=== PATIENT | female | born 1985 | race American Indian/Alaskan Native ===

== ENCOUNTER 2021-08-13 09:21 | Inpatient (IN) | payer MEDICAID ==
[2021-08-13] MEDS ORDERED: PROMETHAZINE 25 MG RECT SUPP PR PRN ×2 (09:38→13:52)
[2021-08-13] MEDS ORDERED: HYDROmorphone 1 MG/1 ML INJ IV PRN (09:38)
[2021-08-13] MEDS ORDERED: NALOXONE 0.4 MG/1 ML INJ IV PRN ×2 (09:38→13:52)
[2021-08-13] MEDS ORDERED: ONDANSETRON 4 MG/2 ML INJ IV PRN ×2 (09:38→13:52)
[2021-08-13] MEDS ORDERED: PROMETHAZINE 25 MG TAB PO PRN (09:38)
[2021-08-13] MEDS ORDERED: diphenhydrAMINE 50 MG/ML VIAL IV PRN (09:38)
[2021-08-13] MEDS ORDERED: NalbUPHINE 10 MG/1 ML INJ IV PRN (09:38)
[2021-08-13] MEDS ORDERED: ceFAZolin/Water 2 GM/20 ML 2 GM/20 ML SYRINGE IV NR (10:00)
--- NOTE | 2021-08-13 10:07 | Anesthesia Consultation ---
Anesthesia Consult and Med Hx Date of service: 08/13/21 - Airway Anesthetic Teeth Evaluation: Good ROM Head & Neck: Adequate Mental/Hyoid Distance: Adequate Mallampati Class: Class III Intubation Access Assessment: Possibly Difficult - Pulmonary Exam CTA: Yes - Cardiac Exam Cardiac Exam: RRR - Pre-Operative Health Status ASA Pre-Surgery Classification: ASA2 Proposed Anesthetic Plan: Spinal Nerve Block: TAP - Pulmonary Hx Smoking: No Hx Asthma: No COPD: No Hx Pneumonia: No Hx Sleep Apnea: No - Cardiovascular System Hx Hypertension: No Hx Heart Attack/AMI: No Hx Angina: No - Central Nervous System Hx Seizures: No Hx Psychiatric Problems: No - Gastrointestinal Hx Gastroesophageal Reflux Disease: No - Endocrine Hx Renal Disease: No Hx End Stage Renal Disease: No Hx Liver Disease: No Hx Insulin Dependent Diabetes: No Hx Non-Insulin Dependent Diabetes: No Hx Hypothyroidism: No Hx Hyperthyroidism: No - Hematic Hx Anemia: No Hx Sickle Cell Disease: No - Other Systems Hx Alcohol Use: No Hx Obesity: Yes - Additional Comments Anesthesia Medical History Comments: previous c/s x1
--- NOTE | 2021-08-13 10:07 | Anesthesia Day of Surgery ---
Anesthesia Day of Surgery - Day of Surgery Patient Examined: Yes Patient H&P Reviewed: Yes Patient is NPO: Yes Beta Blockers: No Cardiac Clearance: No Pulmonary Clearance: No Jagdish's Test: N/A
[2021-08-13] MEDS ORDERED: OXYTOCIN DRIP 30 UNITS/500 ML BAG IV SCH ×2 (10:30→14:00)
[2021-08-13] MEDS ORDERED: METOCLOPRAMIDE 10 MG/2 ML INJ IV ONE (10:30)
[2021-08-13] MEDS ORDERED: BICITRA ORAL LIQD 30ML PO ONE (10:30)
[2021-08-13] MEDS ORDERED: FAMOTIDINE 20 MG/2 ML INJ IV ONE (10:30)
[2021-08-13 10:34] LABS: Basophils % (Auto) 0.2 % (0.0-1.8); Eosinophils # (Auto) 0.1 K/mm3 (0.0-0.4); Eosinophils % (Auto) 0.8 % (0.0-4.3); Hematocrit 31.2 % (30.3-42.9); Hemoglobin 10.2 gm/dl (10.1-14.3); Lymphocytes # (Auto) 1.5 K/mm3 (1.2-5.4); Lymphocytes % (Auto) 20.6 % (13.4-35.0); Mean Corpuscular HGB Conc 33 % (30-34); Mean Corpuscular Volume 83 fl (79-97); Monocytes # (Auto) 0.6 K/mm3 (0.0-0.8); Monocytes % (Auto) 7.8 % (0.0-7.3); Platelet Count 243 K/mm3 (140-440); Red Blood Count 3.75 M/mm3 (3.65-5.03); Red Cell Distribution Width 16.7 % (13.2-15.2)
[2021-08-13] MEDS: LACTATED RINGERS 1,000 ML IV SCH ×2 (10:37→18:22)
--- NOTE | 2021-08-13 11:26 | History and Physical Report ---
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 Patient affirms that she desires bilateral tubal ligation and no longer wishes to conceive. Denies labor complaints or PIH symptoms. Active fetus. 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 History: herpes Family/Genetic History: cancer (breast) Social history: no significant social history - Obstetrical History Expected Date of Delivery: 08/20/21 Actual Gestation: 39 Week(s) 0 Day(s) : 6 Para: 5 Hx # Term Pregnancies: 5 Number of Living Children: 5 Medications and Allergies Allergies Allergy/AdvReac Type Severity Reaction Status Date / Time No Known Allergies Allergy Unverified 01/04/14 01:03 Home Medications Medication Instructions Recorded Confirmed Last Taken Type Valacyclovir HCl [Valtrex] 1,000 mg PO DAILY 01/04/14 03/02/16 01/03/14 History Acetaminophen [Acetaminophen ER 650 mg PO Q8HR PRN #120 tablet.er 08/18/15 03/02/16 Unknown Rx TAB] Pnv,Calcium 72/Iron/Folic Acid 1 each PO DAILY #90 tablet 08/18/15 03/02/16 Unknown Rx [Pnv Plus Multivit Tab] Ferrous Sulfate [Feosol 325 MG tab] 325 mg PO BID #60 tablet 03/02/16 Unknown Rx HYDROcodone/APAP 5-325 [[place] 1 each PO Q6HR PRN #30 tablet 03/02/16 Unknown Rx 5/325] Ibuprofen [Motrin] 800 mg PO Q8HR PRN #30 tablet 03/02/16 Unknown Rx Vit Calc,Iron,Folic 1 each PO DAILY #30 tablet 03/02/16 Unknown Rx [ Vitamins] Active Meds: Active Medications Diphenhydramine HCl (Diphenhydramine 50 Mg/Ml Vial) 12.5 mg IV Q2H PRN PRN Reason: Itching Hydromorphone HCl (Hydromorphone 1 Mg/1 Ml Inj) 0.5 mg IV Q4H PRN PRN Reason: breakthrough pain > 7/10 Lactated Ringer's (Lactated Ringers) 1,000 mls @ 2,250 mls/hr IV PREOP ISSA Stop: 08/14/21 10:42 Last Admin: 08/13/21 10:37 Dose: 2,250 mls/hr Documented by: Oxytocin/Sodium Chloride (Pitocin/Ns 30 Unit/500ml) 30 units in 500 mls @ 0 mls/hr IV TITR ISSA; Protocol Cefazolin Sodium (Ancef/Sterile Water 2 Gm/20 Ml) 2 gm in 20 mls @ 80 mls/hr IV PREOP NR; Protocol Stop: 08/13/21 23:59 Nalbuphine HCl (Nalbuphine 10 Mg/1 Ml Inj) 2.5 mg IV Q2H PRN PRN Reason: Itching Naloxone HCl (Naloxone 0.4 Mg/1 Ml Inj) 0.2 mg IV Q2MIN PRN PRN Reason: Res Rate </= 8 or 02 SAT < 92% Ondansetron HCl (Ondansetron 4 Mg/2 Ml Inj) 4 mg IV Q8H PRN PRN Reason: Nausea And Vomiting Promethazine HCl (Promethazine 25 Mg Tab) 25 mg PO Q6H PRN PRN Reason: Nausea And Vomiting Promethazine HCl (Promethazine 25 Mg Rect Supp) 25 mg W[place] Q6H PRN PRN Reason: Nausea And Vomiting Review of Systems All systems: negative (expect HPI) - Vital Signs Vital signs: Vital Signs Pulse BP Pulse Ox 81 115/67 100 08/13/21 10:05 08/13/21 10:05 08/13/21 10:05 Temp Pulse Resp BP Pulse Ox 98.5 F 80 20 115/67 100 08/13/21 10:24 08/13/21 10:55 08/13/21 10:24 08/13/21 10:05 08/13/21 10:55 - Physical Exam Abdomen: Positive: normal appearance, soft Uterus: Positive: enlarged - Obstetrical FHR: category 1, category 2 Uterine Contraction Monitor Mode: External Results Result Diagrams: 08/13/21 09:45 Abnormal lab results 08/13/21 Range/Units 09:45 MCH 27 L (28-32) pg RDW 16.7 H (13.2-15.2) % Parke % (Auto) 7.8 H (0.0-7.3) % Seg Neutrophils % 70.6 H (40.0-70.0) % All other labs normal. Assessment and Plan - Patient Problems (1) H/O: Current Visit: Yes Status: Acute Plan to address problem: To the OR for repeat and bilateral tubal ligation --Consented in the chart --Questions solicited and answered
--- NOTE | 2021-08-13 12:04 | Progress Note ---
Spinal Anesthesia Block - Spinal Anesthesia Block Start Time: 11:40 Stop Time: 11:55 Performed by:: TARUN CESAR ([facility]) Procedure: Spinal anesthesia block is being performed for [C/S]. H&P, labs have been reviewed. Patient's questions and concerns have been answered. Informed consent has been performed. Timeout has was performed. Patient in sitting position on side of bed. Sterile prep and drape was performed. 3 mL 1% lidocaine skin wheal at L [3]-L [4]. Needle introducer advanced. 25-gauge spinal needle advanced, [+] CSF [-] blood. [Marcaine 10mg and Precedex 5mcg] Spinal dose was given. All needles removed. Patient tolerated procedure well.
[2021-08-13] MEDS ORDERED: KETOROLAC 30 MG/1 ML INJ ONE (12:07)
[2021-08-13] MEDS ORDERED: PHENYLEPHRINE/NS 1,000 MCG/10 ML SYRINGE (OR USE) IV ONE (12:07)
[2021-08-13] MEDS ORDERED: BUPIVACAINE/PF (0.5%) 5 MG/1 ML 30 ML VIAL INFILTRATI ONE (12:07)
[2021-08-13] MEDS ORDERED: ONDANSETRON 4 MG/2 ML INJ ONE (12:07)
[2021-08-13] MEDS ORDERED: dexAMETHasone 20 MG/5 ML VIAL ONE (12:07)
[2021-08-13] MEDS ORDERED: HYDROCORTISONE 25 MG RECTAL SUPP PR PRN (13:52)
[2021-08-13] MEDS ORDERED: SIMETHICONE 80 MG CHEW TAB PO PRN (13:52)
[2021-08-13] MEDS ORDERED: WITCH HAZEL/ GLYCERIN PAD TP PRN (13:52)
[2021-08-13] MEDS ORDERED: MORPHINE 4 MG/1 ML INJ IV PRN (13:52)
[2021-08-13] MEDS ORDERED: MAGNESIUM HYDROXIDE (MOM) ORAL LIQD UDC PO PRN (13:52)
[2021-08-13] MEDS ORDERED: LANOLIN/ZINC/DIMETHICONE (LANSINOH) 7 GM TP PRN (13:52)
[2021-08-13] MEDS ORDERED: SENNOSIDES 8.6 MG TAB PO PRN (13:52)
--- NOTE | 2021-08-13 13:56 | Procedure Note ---
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 Findings: Normal uterus, tubes and ovaries. Clear fluid. No nuchal cord. Delivery of male at 1238 Weight 3060g APGARS 9/10 EBL 808cc IVF 1000cc UOP 100cc Procedure: Patient was taken to the operating room prepped and draped in the usual sterile fashion. Pfannenstiel skin incision was made and carried down to the underlying fascia. Fascia was incised and the incision was distended bilaterally. Rectus fascia was dissected off the rectus muscle superiorly and inferiorly. Peritoneum was identified and entered. Peritoneal incision extended superiorly and inferiorly. The bladder was visualized. The bladder blade was placed. Uterine hysterotomy incision was made and extended bilaterally. The baby was delivered in the typical vertex fashion using vacuum assistance. Baby was bulb suction at delivery. The cord was cut and clamped and handed off to the team. The placenta was delivered spontaneously. The uterus was exteriorized and cleared of all clots and debris. Uterine incision was closed with a 0 Vicryl in a running locked fashion. Good hemostasis was noted and 3 [id number] sutures applied to the uterine incision. Next a bilateral tubal ligation was completed. 0 chromic suture was used to suture ligate the proximal and distal segment of each tube followed by transection of the tube in the center. This was completed first on the left side and then the right side the patient. Hemostasis was noted. Surgicel powder was applied to the uterine incisional base to provide hemostasis. The urine was noted to be clear. Uterus, tubes, and ovaries were returned to the abdominal cavity. Bilateral gutters were cleared and the abdomen and pelvis were irrigated. Good hemostasis noted. Attention was directed towards the rectus fascia which was reapproximated with 0 PDS in a running fashion. The subcutaneous tissue was irrigated and reapproximated with 3-0 Vicryl in a running fashion. Skin was closed with a 4-0 Vicryl in a subcuticular fashion. The procedure was completed and the patient tolerated the procedure well. All instruments and lap counts were correct x2. - A at 1 minute: 9 at 5 minutes: 10 Gender: Male
[2021-08-13] MEDS: KETOROLAC 30 MG/1 ML INJ IV SCH ×2 (16:34→22:57)
[2021-08-14 03:59] LABS: Hematocrit 29.7 % (30.3-42.9); Hemoglobin 9.2 gm/dl (10.1-14.3)
[2021-08-14] MEDS: KETOROLAC 30 MG/1 ML INJ IV SCH ×2 (04:30→09:05)
--- NOTE | 2021-08-14 08:04 | Post Anesthesia Evaluation ---
- Post Anesthesia Evaluation Patient Participated: Yes Airway Patent: Yes Stable Respiratory Function: Yes Nausea/Vomiting: No Temp > 96.8F: Yes Pain Manageable: Yes Adequeate Hydration: Yes Anesthesia Complications: No Block Receding Appropriately: Yes Patient on Ventilator: No
[2021-08-14] MEDS: FERROUS SULFATE 325 MG TAB PO SCH (09:05)
[2021-08-14] MEDS: oxyCODONE /ACETAMINOPHEN 5-325MG TAB PO PRN ×2 (10:22→21:20)
--- NOTE | 2021-08-14 17:27 | Progress Note ---
Assessment and Plan POD#1 C/S and BTL doing well 1. Routine post op care and discharge home in the am. All questions encouraged and answered Subjective Date of service: 08/14/21 Principal diagnosis: POD#1 C/S and BTL Interval history: Pt has no complaints. pt has passed flatus and tolerates regular diet and looking forward to go home in the am. pt voiding well. Vag bleed less than a period and pain controlled with meds Objective - Constitutional Vitals: Vital Signs - 12hr 08/14/21 08/14/21 08/14/21 07:17 08:06 10:40 Temperature 97.9 F Pulse Rate 88 Respiratory 18 Rate Blood Pressure 100/43 Blood Pressure [Left] O2 Sat by Pulse 97 Oximetry O2 Sat by Pulse 99 99 Oximetry [ Anterior Bilateral Throughout] 08/14/21 08/14/21 08/14/21 11:12 11:18 12:20 Temperature 97.9 F 97.9 F Pulse Rate 84 91 H Respiratory 18 18 Rate Blood Pressure 97/44 Blood Pressure 90/53 [Left] O2 Sat by Pulse 99 98 Oximetry O2 Sat by Pulse 99 Oximetry [ Anterior Bilateral Throughout] 08/14/21 16:54 Temperature 98.8 F Pulse Rate Respiratory 20 Rate Blood Pressure 84/35 Blood Pressure [Left] O2 Sat by Pulse Oximetry O2 Sat by Pulse Oximetry [ Anterior Bilateral Throughout] General appearance: Present: no acute distress - Respiratory Respiratory effort: normal - Breasts Breasts: normal - Cardiovascular Rhythm: regular Extremities: No edema - Gastrointestinal General gastrointestinal: Present: soft, non-tender, normal bowel sounds - Genitourinary Female genitourinary: other (Incision C/D/I with dressing in place; Fundus firm, 2cm below the umbilicus and non-tender) - Neurologic Neurologic: moves all extremities - Psychiatric Psychiatric: appropriate mood/affect - Labs CBC & Chem 7: 08/14/21 03:42 Labs: Abnormal lab results 08/14/21 Range/Units 03:42 Hgb 9.2 L (10.1-14.3) gm/dl Hct 29.7 L (30.3-42.9) % Medications & Allergies - Medications Allergies/Adverse Reactions: Allergies Iodine and Iodide Containing Produc Allergy (Verified 08/13/21 17:48) Itching shellfish derived Allergy (Verified 08/13/21 17:48) Itching Home Medications: Home Medications Medication Instructions Recorded Confirmed Last Taken Type Valacyclovir HCl [Valtrex] 1,000 mg PO DAILY 01/04/14 08/13/21 08/13/21 History Pnv,Calcium 72/Iron/Folic Acid 1 each PO DAILY #90 tablet 08/18/15 08/13/21 Unknown Rx [Pnv Plus Multivit Tab] Ferrous Sulfate [Feosol 325 MG tab] 325 mg PO BID #60 tablet 03/02/16 08/13/21 08/12/21 Rx Vit Calc,Iron,Folic 1 each PO DAILY #30 tablet 03/02/16 08/13/21 08/12/21 Rx [ Vitamins] Ibuprofen [Motrin 800 MG tab] 800 mg PO Q6H PRN #30 tablet 08/13/21 Unknown Rx Ibuprofen [Motrin 800 MG tab] 800 mg PO Q8HR PRN #30 tablet 08/13/21 Unknown Rx oxyCODONE /ACETAMINOPHEN [Percocet 1 tab PO Q6H PRN #30 tablet 08/13/21 Unknown Rx 5/325 mg] oxyCODONE /ACETAMINOPHEN [Percocet 1 tab PO Q6HR PRN #30 tablet 08/13/21 Unknown Rx 5/325] Active Medications: Generic Name Dose Route Start Last Admin Trade Name Aaronq PRN Reason Stop Dose Admin Diphenhydramine HCl 12.5 mg 08/13/21 09:38 Diphenhydramine 50 Mg/Ml Vial IV Q2H PRN Itching Ferrous Sulfate 325 mg 08/14/21 10:00 Ferrous Sulfate 325 Mg Tab PO QDAY ISSA Hydrocortisone Acetate 25 mg 08/13/21 13:52 Hydrocortisone 25 Mg Rectal Supp [place] BID PRN Hemorrhoids Hydromorphone HCl 0.5 mg 08/13/21 09:38 Hydromorphone 1 Mg/1 Ml Inj IV Q4H PRN breakthrough pain > 7/10 Oxytocin/Sodium Chloride 30 units in 500 mls @ 0 mls/hr 08/13/21 10:30 Pitocin/Ns 30 Unit/500ml IV TITR ISSA Protocol As Directed Oxytocin/Sodium Chloride 30 units in 500 mls @ 40 mls/hr 08/13/21 14:00 Pitocin/Ns 30 Unit/500ml IV TITR [facility] Protocol Ibuprofen 800 mg 08/13/21 13:52 Ibuprofen 800 Mg Tab PO Q6H PRN Pain, Mild (1-3) Magnesium Hydroxide 30 ml 08/13/21 13:52 Magnesium Hydroxide (Mom) Oral Liqd Udc PO QHS PRN Constip Unrelieved By Senna Morphine Sulfate 4 mg 08/13/21 13:52 Morphine 4 Mg/1 Ml Inj IV Q4H PRN Pain , Severe (7-10) Multi-Ingredient Ointment 1 applic 08/13/21 13:52 Lanolin/Zinc/Dimethicone (Lansinoh) 7 Gm TP PRN PRN dryness/cracking Nalbuphine HCl 2.5 mg 08/13/21 09:38 Nalbuphine 10 Mg/1 Ml Inj IV Q2H PRN Itching Naloxone HCl 0.1 mg 08/13/21 13:52 Naloxone 0.4 Mg/1 Ml Inj IV Q2MIN PRN Res Rate </= 8 or 02 SAT < 92% Ondansetron HCl 4 mg 08/13/21 13:52 Ondansetron 4 Mg/2 Ml Inj IV Q8H PRN Nausea And Vomiting Oxycodone/Acetaminophen 1 tab 08/13/21 13:52 Oxycodone /Acetaminophen 5-325mg Tab PO Q6H PRN Pain, Moderate (4-6) Promethazine HCl 25 mg 08/13/21 09:38 Promethazine 25 Mg Tab PO Q6H PRN Nausea And Vomiting Promethazine HCl 25 mg 08/13/21 13:52 Promethazine 25 Mg Rect Supp [place] Q6H PRN N/V IF NPO AND NO IV ACCESS Senna 17.2 mg 08/13/21 13:52 Sennosides 8.6 Mg Tab PO QHS PRN Constipation Simethicone 80 mg 08/13/21 13:52 Simethicone 80 Mg Chew Tab PO Q6H PRN Gas pain Sodium Chloride 10 ml 08/13/21 14:00 Sodium Chloride 0.9% 10 Ml Flush Syringe IV PRN ISSA Witch Jennifer/Glycerin 1 each 08/13/21 13:52 Witch Jennifer/ Glycerin Pad TP PRN PRN Hemorrhoids/cleansing/soothing
[2021-08-14] MEDS: ASCORBIC ACID 500 MG TAB PO SCH (21:20)
[2021-08-15] MEDS: IBUPROFEN 800 MG TAB PO PRN (00:41)
--- NOTE | 2021-08-15 01:00 | Progress Note ---
Assessment and Plan POD#2 C/S and BTL with early signs of ileus 1. Pt encouraged to ambulate more in the room 2. Will check cmp for potassium level and other electrolytes 3. Will repeat cbc to ensure no worsening anemia 4. Pt to remain in hospital and not a candidate for discharge today. All questions encouraged and answered Subjective Date of service: 08/15/21 Principal diagnosis: POD#2 C/S and BTL Interval history: pt c/o pain to abd and states she took the MOM and passed only a small amount of flatus. Denies N/V/F/C. pt tolerating diet and voiding without difficulty. Objective - Constitutional Vitals: Vital Signs - 12hr 08/14/21 08/14/21 08/14/21 14:00 16:35 16:54 Temperature 98.8 F Respiratory 20 Rate Blood Pressure 84/35 O2 Sat by Pulse 99 99 Oximetry [ Anterior Bilateral Throughout] General appearance: Present: no acute distress - Respiratory Respiratory effort: normal - Breasts Breasts: deferred - Cardiovascular Rhythm: regular Extremities: No edema - Gastrointestinal General gastrointestinal: Present: non-tender, distended, other (Dressing when removed with incision C/D/I with old blood stain and steristrips in place) - Genitourinary Female genitourinary: other (uterus with fundus firm 2cm below the umbilicus) - Integumentary Integumentary: warm, dry - Neurologic Neurologic: moves all extremities - Psychiatric Psychiatric: appropriate mood/affect - Labs CBC & Chem 7: 08/14/21 03:42 Labs: Abnormal lab results 08/14/21 Range/Units 03:42 Hgb 9.2 L (10.1-14.3) gm/dl Hct 29.7 L (30.3-42.9) % Medications & Allergies - Medications Allergies/Adverse Reactions: Allergies Iodine and Iodide Containing Produc Allergy (Verified 08/13/21 17:48) Itching shellfish derived Allergy (Verified 08/13/21 17:48) Itching Home Medications: Home Medications Medication Instructions Recorded Confirmed Last Taken Type Valacyclovir HCl [Valtrex] 1,000 mg PO DAILY 01/04/14 08/13/21 08/13/21 History Pnv,Calcium 72/Iron/Folic Acid 1 each PO DAILY #90 tablet 08/18/15 08/13/21 U nknown Rx [Pnv Plus Multivit Tab] Ferrous Sulfate [Feosol 325 MG tab] 325 mg PO BID #60 tablet 03/02/16 08/13/21 08/12/21 Rx Vit Calc,Iron,Folic 1 each PO DAILY #30 tablet 03/02/16 08/13/21 08/12/21 Rx [ Vitamins] Ibuprofen [Motrin 800 MG tab] 800 mg PO Q6H PRN #30 tablet 08/13/21 Unknown Rx Ibuprofen [Motrin 800 MG tab] 800 mg PO Q8HR PRN #30 tablet 08/13/21 Unknown Rx oxyCODONE /ACETAMINOPHEN [Percocet 1 tab PO Q6H PRN #30 tablet 08/13/21 Unknown Rx 5/325 mg] oxyCODONE /ACETAMINOPHEN [Percocet 1 tab PO Q6HR PRN #30 tablet 08/13/21 U nknown Rx 5/325] Active Medications: Generic Name Dose Route Start Last Admin Trade Name Freq PRN Reason Stop Dose Admin Ascorbic Acid 500 mg 08/14/21 22:00 08/14/21 21:20 Ascorbic Acid 500 Mg Tab PO 500 mg BID ISSA Administration Diphenhydramine HCl 12.5 mg 08/13/21 09:38 Diphenhydramine 50 Mg/Ml Vial IV Q2H PRN Itching Ferrous Sulfate 325 mg 08/14/21 10:00 08/14/21 09:05 Ferrous Sulfate 325 Mg Tab PO 325 mg QDAY ISSA Administration Hydrocortisone Acetate 25 mg 08/13/21 13:52 Hydrocortisone 25 Mg Rectal Supp [place] BID PRN Hemorrhoids Hydromorphone HCl 0.5 mg 08/13/21 09:38 Hydromorphone 1 Mg/1 Ml Inj IV Q4H PRN breakthrough pain > 7/10 Oxytocin/Sodium Chloride 30 units in 500 mls @ 0 mls/hr 08/13/21 10:30 Pitocin/Ns 30 Unit/500ml IV TITR ISSA Protocol As Directed Oxytocin/Sodium Chloride 30 units in 500 mls @ 40 mls/hr 08/13/21 14:00 Pitocin/Ns 30 Unit/500ml IV TITR [facility] Protocol Ibuprofen 800 mg 08/13/21 13:52 08/15/21 00:41 Ibuprofen 800 Mg Tab PO 800 mg Q6H PRN Administration Pain, Mild (1-3) Magnesium Hydroxide 30 ml 08/13/21 13:52 08/14/21 21:20 Magnesium Hydroxide (Mom) Oral Liqd Udc PO 30 ml QHS PRN Administration Constip Unrelieved By Senna Morphine Sulfate 4 mg 08/13/21 13:52 Morphine 4 Mg/1 Ml Inj IV Q4H PRN Pain , Severe (7-10) Multi-Ingredient Ointment 1 applic 08/13/21 13:52 Lanolin/Zinc/Dimethicone (Lansinoh) 7 Gm TP PRN PRN dryness/cracking Nalbuphine HCl 2.5 mg 08/13/21 09:38 Nalbuphine 10 Mg/1 Ml Inj IV Q2H PRN Itching Naloxone HCl 0.1 mg 08/13/21 13:52 Naloxone 0.4 Mg/1 Ml Inj IV Q2MIN PRN Res Rate </= 8 or 02 SAT < 92% Ondansetron HCl 4 mg 08/13/21 13:52 Ondansetron 4 Mg/2 Ml Inj IV Q8H PRN Nausea And Vomiting Oxycodone/Acetaminophen 1 tab 08/13/21 13:52 08/14/21 21:20 Oxycodone /Acetaminophen 5-325mg Tab PO 1 tab Q6H PRN Administration Pain, Moderate (4-6) Promethazine HCl 25 mg 08/13/21 09:38 Promethazine 25 Mg Tab PO Q6H PRN Nausea And Vomiting Promethazine HCl 25 mg 08/13/21 13:52 Promethazine 25 Mg Rect Supp ND Q6H PRN N/V IF NPO AND NO IV ACCESS Senna 17.2 mg 08/13/21 13:52 Sennosides 8.6 Mg Tab PO QHS PRN Constipation Simethicone 80 mg 08/13/21 13:52 Simethicone 80 Mg Chew Tab PO Q6H PRN Gas pain Sodium Chloride 10 ml 08/13/21 14:00 Sodium Chloride 0.9% 10 Ml Flush Syringe IV PRN ISSA Witch Jennifer/Glycerin 1 each 08/13/21 13:52 Witch Jennifer/ Glycerin Pad TP PRN PRN Hemorrhoids/cleansing/soothing
[2021-08-15 01:47] LABS: Basophils % (Auto) 0.2 % (0.0-1.8); Eosinophils % (Auto) 0.5 % (0.0-4.3); Hematocrit 24.9 % (30.3-42.9); Hemoglobin 8.1 gm/dl (10.1-14.3); Lymphocytes % (Auto) 19.2 % (13.4-35.0); Mean Corpuscular HGB Conc 33 % (30-34); Mean Corpuscular Volume 84 fl (79-97); Monocytes # (Auto) 0.8 K/mm3 (0.0-0.8); Monocytes % (Auto) 7.7 % (0.0-7.3); Platelet Count 220 K/mm3 (140-440); Red Blood Count 2.96 M/mm3 (3.65-5.03); Red Cell Distribution Width 16.6 % (13.2-15.2)
[2021-08-15 02:03] LABS: Alanine Aminotransferase 11 units/L (7-56); Albumin 2.5 g/dL (3.9-5); BUN/Creatinine Ratio 15; Blood Urea Nitrogen 9 mg/dL (7-17); Calcium 7.9 mg/dL (8.4-10.2); Hemolysis Index 3
[2021-08-15] MEDS: oxyCODONE /ACETAMINOPHEN 5-325MG TAB PO PRN ×3 (03:24→16:52)
[2021-08-15] MEDS: ASCORBIC ACID 500 MG TAB PO SCH ×2 (10:02→22:14)
[2021-08-15] MEDS: FERROUS SULFATE 325 MG TAB PO SCH (10:02)
[2021-08-16] MEDS: IBUPROFEN 800 MG TAB PO PRN (00:03)
--- NOTE | 2021-08-16 01:47 | Progress Note ---
Assessment and Plan POD#3 C/S doing well and desires to go home 1. Pt reminded of proper wound care with dry towelette 2. Discharge home later today and follow up in 1 wk for wound check All questions encouraged and answered Subjective Date of service: 08/16/21 Principal diagnosis: POD#3 C/S and BTL Interval history: pt states she had BM and desires to go home. Pain controlled with meds. Pt did not place dry towelette as recommended and incision slightly damp. Regular diet tolerated and voiding without difficulty Objective - Constitutional Vitals: Vital Signs - 12hr 08/15/21 08/15/21 08/15/21 14:57 16:16 16:58 Temperature 97.9 F Pulse Rate 86 Respiratory 18 Rate Blood Pressure 93/48 [Left] O2 Sat by Pulse 98 98 Oximetry [ Anterior Bilateral Throughout] 08/15/21 08/15/21 08/16/21 18:35 20:30 00:03 Temperature Pulse Rate Respiratory 20 Rate Blood Pressure [Left] O2 Sat by Pulse 98 99 Oximetry [ Anterior Bilateral Throughout] General appearance: Present: no acute distress - Respiratory Respiratory effort: normal - Breasts Breasts: deferred - Cardiovascular Rhythm: regular - Gastrointestinal General gastrointestinal: Present: soft, non-tender, non-distended - Genitourinary Female genitourinary: other (Incision with steristrips in place and slightly damp centrally) - Labs CBC & Chem 7: 08/15/21 01:27 08/15/21 01:27 Labs: Abnormal lab results 08/15/21 08/15/21 Range/Units 01:27 01:27 RBC 2.96 L (3.65-5.03) M/mm3 Hgb 8.1 L (10.1-14.3) gm/dl Hct 24.9 L (30.3-42.9) % MCH 27 L (28-32) pg RDW 16.6 H (13.2-15.2) % Catron % (Auto) 7.7 H (0.0-7.3) % Seg Neutrophils % 72.4 H (40.0-70.0) % Carbon Dioxide 21 L (22-30) mmol/L Calcium 7.9 L (8.4-10.2) mg/dL Total Protein 5.6 L (6.3-8.2) g/dL Albumin 2.5 L (3.9-5) g/dL Medications & Allergies - Medications Allergies/Adverse Reactions: Allergies Iodine and Iodide Containing Produc Allergy (Verified 08/13/21 17:48) Itching shellfish derived Allergy (Verified 08/13/21 17:48) Itching Home Medications: Home Medications Medication Instructions Recorded Confirmed Last Taken Type Valacyclovir HCl [Valtrex] 1,000 mg PO DAILY 01/04/14 08/13/21 08/13/21 History Pnv,Calcium 72/Iron/Folic Acid 1 each PO DAILY #90 tablet 08/18/15 08/13/21 Unknown Rx [Pnv Plus Multivit Tab] Ferrous Sulfate [Feosol 325 MG tab] 325 mg PO BID #60 tablet 03/02/16 08/13/21 08/12/21 Rx Vit Calc,Iron,Folic 1 each PO DAILY #30 tablet 03/02/16 08/13/21 08/12/21 Rx [ Vitamins] Ibuprofen [Motrin 800 MG tab] 800 mg PO Q6H PRN #30 tablet 08/13/21 Unknown Rx Ibuprofen [Motrin 800 MG tab] 800 mg PO Q8HR PRN #30 tablet 08/13/21 Unknown Rx oxyCODONE /ACETAMINOPHEN [Percocet 1 tab PO Q6H PRN #30 tablet 08/13/21 Unknown Rx 5/325 mg] oxyCODONE /ACETAMINOPHEN [Percocet 1 tab PO Q6HR PRN #30 tablet 08/13/21 Unknown Rx 5/325] Active Medications: Generic Name Dose Route Start Last Admin Trade Name Freq PRN Reason Stop Dose Admin Ascorbic Acid 500 mg 08/14/21 22:00 08/15/21 22:14 Ascorbic Acid 500 Mg Tab PO 500 mg BID ISSA Administration Diphenhydramine HCl 12.5 mg 08/13/21 09:38 Diphenhydramine 50 Mg/Ml Vial IV Q2H PRN Itching Ferrous Sulfate 325 mg 08/14/21 10:00 08/15/21 10:02 Ferrous Sulfate 325 Mg Tab PO 325 mg QDAY ISSA Administration Hydrocortisone Acetate 25 mg 08/13/21 13:52 Hydrocortisone 25 Mg Rectal Supp HI BID PRN Hemorrhoids Hydromorphone HCl 0.5 mg 08/13/21 09:38 Hydromorphone 1 Mg/1 Ml Inj IV Q4H PRN breakthrough pain > 7/10 Oxytocin/Sodium Chloride 30 units in 500 mls @ 0 mls/hr 08/13/21 10:30 Pitocin/Ns 30 Unit/500ml IV TITR ISSA Protocol As Directed Oxytocin/Sodium Chloride 30 units in 500 mls @ 40 mls/hr 08/13/21 14:00 Pitocin/Ns 30 Unit/500ml IV TITR ISSA Protocol Ibuprofen 800 mg 08/13/21 13:52 08/16/21 00:03 Ibuprofen 800 Mg Tab PO 800 mg Q6H PRN Administration Pain, Mild (1-3) Magnesium Hydroxide 30 ml 08/13/21 13:52 08/14/21 21:20 Magnesium Hydroxide (Mom) Oral Liqd Udc PO 30 ml QHS PRN Administration Constip Unrelieved By Senna Morphine Sulfate 4 mg 08/13/21 13:52 Morphine 4 Mg/1 Ml Inj IV Q4H PRN Pain , Severe (7-10) Multi-Ingredient Ointment 1 applic 08/13/21 13:52 Lanolin/Zinc/Dimethicone (Lansinoh) 7 Gm TP PRN PRN dryness/cracking Nalbuphine HCl 2.5 mg 08/13/21 09:38 Nalbuphine 10 Mg/1 Ml Inj IV Q2H PRN Itching Naloxone HCl 0.1 mg 08/13/21 13:52 Naloxone 0.4 Mg/1 Ml Inj IV Q2MIN PRN Res Rate </= 8 or 02 SAT < 92% Ondansetron HCl 4 mg 08/13/21 13:52 Ondansetron 4 Mg/2 Ml Inj IV Q8H PRN Nausea And Vomiting Oxycodone/Acetaminophen 1 tab 08/13/21 13:52 08/15/21 16:52 Oxycodone /Acetaminophen 5-325mg Tab PO 1 tab Q6H PRN Administration Pain, Moderate (4-6) Promethazine HCl 25 mg 08/13/21 09:38 Promethazine 25 Mg Tab PO Q6H PRN Nausea And Vomiting Promethazine HCl 25 mg 08/13/21 13:52 Promethazine 25 Mg Rect Supp HI Q6H PRN N/V IF NPO AND NO IV ACCESS Senna 17.2 mg 08/13/21 13:52 Sennosides 8.6 Mg Tab PO QHS PRN Constipation Simethicone 80 mg 08/13/21 13:52 Simethicone 80 Mg Chew Tab PO Q6H PRN Gas pain Sodium Chloride 10 ml 08/13/21 14:00 Sodium Chloride 0.9% 10 Ml Flush Syringe IV PRN ISSA Witch Jennifer/Glycerin 1 each 08/13/21 13:52 Witch Jennifer/ Glycerin Pad TP PRN PRN Hemorrhoids/cleansing/soothing
--- NOTE | 2021-08-16 01:53 | Discharge Summary ---
Providers - Providers Date of Admission: 08/13/21 09:21 Date of discharge: 08/16/21 Attending physician: NELLIE DIXON JR, MD Primary care physician: NELLIE DIXON JR, MD Hospitalization Reason for admission: section, IUP at term Delivery: Procedure: bilateral tubal ligation, repeat low transverse Incision: normal Other procedures: tubal ligation complications: none Discharge diagnosis: IUP at term delivered (and permanent sterilization) baby: male Hospital course: Pt had uncomplicated c/section and post op asymptomatic anemia; pt also had permanent sterilization procedure. Pt did not ambulate much post op however had BM prior to discharge. Pain controlled with meds. Condition at discharge: Good Disposition: 01 HOME / SELF CARE / HOMELESS - Discharge Diagnoses (1) Encounter for sterilization Status: Acute (2) Anemia Status: Acute Qualifiers: Anemia type: iron deficiency Plan - Discharge Medications Prescriptions: Ferrous Sulfate [Ferrous Sulfate 324 MG] 324 mg PO BID 30 Days #60 tablet. Ibuprofen [Motrin 800 MG tab] 800 mg PO Q8HR PRN #30 tablet PRN Reason: Pain, Mild (1-3) oxyCODONE /ACETAMINOPHEN [Percocet 5/325] 1 tab PO Q6HR PRN #30 tablet PRN Reason: Pain, Moderate (4-6) Ascorbic Acid [Vitamin C] 0 mg PO BID 30 Days #60 tablet - Provider Discharge Summary Additional instructions: [] Smoking cessation referral if applicable(refer to patient education folder for contact #) [] Refer to [facility] Booklet Call your doctor immediately for: * Fever > 100.5 * Heavy vaginal bleeding ( >1 pad per hour) * Severe persistent headache * Shortness of breath * Reddened, hot, painful area to leg or breast * Drainage or odor from incision. * Keep incision clean and dry at all times and follow doctor's instructions regarding bathing/showering - Follow up plan Follow up: NELLIE DIXON JR, MD [Primary Care Provider] - 7 Days
[2021-08-16] MEDS: oxyCODONE /ACETAMINOPHEN 5-325MG TAB PO PRN ×2 (04:05→11:01)
[2021-08-16] MEDS: ASCORBIC ACID 500 MG TAB PO SCH (10:55)
[2021-08-16] MEDS: FERROUS SULFATE 325 MG TAB PO SCH (10:55)
[2021-08-16 13:46] VITALS: BP 107/67
== END 2021-08-16 15:48 | disposition home or self-care (01) | DRG 765 ==
LOC: APU 09:21 → OB 15:13
PROVIDERS: ADMIT Obstetrics & Gynecology; ATTEND Obstetrics & Gynecology
PROC: 10D00Z1 Extraction of Products of Conception, Low, Open Approach (ICD-10-PCS; principal; 2021-08-13)
PROC: 0UB70ZZ Excision of Bilateral Fallopian Tubes, Open Approach (ICD-10-PCS; 2021-08-13)
DX: O34.211 Maternal care for low transverse scar from previous cesarean delivery (principal); O98.32 Other infections with a predominantly sexual mode of transmission complicating childbirth; Z20.822 Contact with and (suspected) exposure to COVID-19; A60.00 Herpesviral infection of urogenital system, unspecified; Z37.0 Single live birth; Z3A.39 39 weeks gestation of pregnancy; D50.9 Iron deficiency anemia, unspecified; Z30.2 Encounter for sterilization
CPT/HCPCS: 36415; 80053; 85014; 85018; 85025; 86850; 86900; 86901; 88302; G0378; J3490; J7121; J1100; J1885; J2370; J2405; J2765; J7120; U0003